=== PATIENT | female | born 1995 | race African-American/Black ===

== ENCOUNTER 2017-01-24 18:37 | Emergency (ER) | payer OTHER ==
--- NOTE | 2017-01-24 20:08 | ED Physician Documentation ---
PD HPI Fall - Stated complaint Stated Complaint: GLF 5-8 FT/HEAD INJURY - Chief complaint Chief Complaint: Trauma Hd/Nk - History obtained from History obtained from: Patient - History of Present Illness Mechanism of injury: Lost balance (she was getting down from aircraft and reached for handhold and missed, losing balance, and fell about 8 feet to left side, struck head and arm (had helmet on), with some briefly dazed but no vomiting, visual change, confusion. Had mild nausea for few minutes. Sent to ED for evaluation after the fall. She says she was ambulatory after the injury.) Fall distance: 5 to 10ft Where injury occurred: Work Timing - onset: Today (30 minutes [employer]) Injury(ies) location: Head, Neck, Left Uppper Extremity (forearm) Quality of pain: Aching, Dull Associated symptoms: Neck pain, Nausea / vomiting. No: LOC, AMS, Weakness Worsens with: Movement (of neck, with some pain left lateral) Contributing factors: No: Anticoagulated, Intoxicated Similar symptoms before: Has not had sx before Recently seen: Not recently seen Review of Systems Constitutional: denies: Fever, Chills Eyes: denies: Loss of vision, Decreased vision, Photophobia Cardiac: denies: Chest pain / pressure, Palpitations Respiratory: denies: Dyspnea GI: reports: Nausea (for just few minutes, improved now). denies: Abdominal Pain, Vomiting, Diarrhea Skin: denies: Abrasion (s), Laceration (s) Neurologic: reports: Headache, Head injury. denies: Focal weakness, Numbness, Seizure PD PAST MEDICAL HISTORY - Past Medical History Past Medical History: No - Past Surgical History Past Surgical History: Yes - Present Medications Home Medications: Ambulatory Orders Medication Instructions Recorded Confirmed Fluconazole [Diflucan] 1 tab PO DAILY 01/24/17 01/24/17 Methocarbamol [Robaxin] 500 mg PO Q6H PRN #20 tablet 01/24/17 Naproxen 375 mg PO BID #20 tablet 01/24/17 - Allergies Allergies/Adverse Reactions: Allergies Allergy/AdvReac Type Severity Reaction Status Date / Time No Known Drug Allergies Allergy Verified 01/24/17 18:40 - Social History Does the pt smoke?: No Smoking Status: Never smoker Does the pt drink ETOH?: Yes Does the pt have substance abuse?: No - Immunizations Immunizations are current?: Yes - POLST Patient has POLST: No PD ED PE NORMAL - Vitals Vital signs reviewed: Yes - General General: Alert and oriented X 3, No acute distress, Well developed/nourished - HEENT HEENT: Atraumatic (no tenderness of scalp focally), Pharynx benign - Neck Neck: Supple, no meningeal sign, No adenopathy, Other (some tenderness of left paracervical area. No obvious deformity. ) - Cardiac Cardiac: RRR, No murmur - Respiratory Respiratory: Clear bilaterally - Abdomen Abdomen: Soft, Non tender - Derm Derm: Normal color, Warm and dry - Extremities Extremities: Normal ROM s pain, Other (mild tenderness left forearm with good ROM and no deformity. ) - Neuro Neuro: Alert and oriented X 3, heddler tier 2-12 intact, No motor deficit, No sensory deficit, Normal speech Results - Vitals Vitals: Vital Signs - 24 hr 01/24/17 01/24/17 18:37 21:23 Heart Rate 91 85 Respiratory 16 18 Rate Blood Pressure 132/89 H 125/85 H O2 Saturation 100 100 Oxygen O2 Source Room air - Rads (name of study) head CT Radiology: Prelim report reviewed, EMP read contemporaneously (no acute findings ) cervical xray Radiology: Prelim report reviewed (no bony abnormality) PD MEDICAL DECISION MAKING - ED course Complexity details: reviewed results (head CT and neck xray are okay. Had low suspicion for neck problem and so did plain film rather than CT to reduce radiation of thyroid and upper chest. ), considered differential, d/w patient Departure - Departure Disposition: 01 Home, Self Care Clinical Impression: Accidental fall Qualifiers: Encounter type: initial encounter Qualified Code(s): W19.XXXA - Unspecified fall, initial encounter Cervical strain, acute Qualifiers: Encounter type: initial encounter Qualified Code(s): S16.1XXA - Strain of muscle, fascia and tendon at neck level, initial encounter Head contusion Qualifiers: Encounter type: initial encounter Contusion of head detail: scalp Qualified Code(s): S00.03XA - Contusion of scalp, initial encounter Condition: Stable Record reviewed to determine appropriate education?: Yes Instructions: ED Head Injury Closed, ED Sprain Strain Neck Follow-Up: PERCY CALDWELL [Primary Care Provider] - Prescriptions: Methocarbamol [Robaxin] 500 mg PO Q6H PRN #20 tablet PRN Reason: Spasms Naproxen 375 mg PO BID #20 tablet Comments: Tylenol or ibuprofen as needed for pains. Add Robaxin if needed for muscle stiffness. Heat and gentle range of motion of the neck periodically. Avoid heavy lifting or push pull for 2-3 days. Light duty for 2-3 days. Forms: Activity restrictions Discharge Date/Time: 01/24/17 21:26
[2017-01-24] MEDS ORDERED: IBUPROFEN 600 MG TABLET PO STA (20:19)
[2017-01-24] MEDS ORDERED: ACETAMINOPHEN 325 MG TABLET PO STA (20:20)
[2017-01-24] MEDS ORDERED: IBUPROFEN 600 MG TABLET PO ONE (20:31)
[2017-01-24] MEDS ORDERED: ACETAMINOPHEN 325 MG TABLET PO ONE (20:31)
--- NOTE | 2017-01-24 21:10 | XRAY Preliminary Report ---
Exam: XR CERVICAL SPINE 2 VIEW IMPRESSION: Normal cervical spine radiography. [facility] SITE ID: [id number]
--- NOTE | 2017-01-24 21:13 | XRAY Report ---
EXAM: CERVICAL SPINE RADIOGRAPHY EXAM DATE: 01/24/2017 08:48 PM. CLINICAL HISTORY: Fall with some left neck pain. COMPARISONS: None. TECHNIQUE: 3 views. FINDINGS: Alignment: Normal. No spondylolisthesis or scoliosis. Bones: The cervical vertebral bodies and posterior elements are well visualized from the skull base t hrough C7-T1. No fractures or bone lesions. Disks: Normal. Disk heights are maintained. Facets: No degenerative disease. Soft Tissues: Normal. No prevertebral soft tissue swelling. The visualized lung apices are clear. IMPRESSION: Normal cervical spine radiography. [facility] Referring Provider Line: [phone] SITE ID: [id number]
--- NOTE | 2017-01-24 21:13 | CT Preliminary Report ---
Exam: CT HEAD W/O IMPRESSION: Normal head CT. [facility] SITE ID: [id number]
--- NOTE | 2017-01-24 21:16 | CT Report ---
EXAM: CT HEAD EXAM DATE: 01/24/2017 08:40 PM. CLINICAL HISTORY: Fell 8 ft and struck head; mild concussive sxs. COMPARISON: None. TECHNIQUE: Multiaxial CT images were obtained from the foramen magnum to the vertex. Reformats: Coron al. IV contrast: None. In accordance with CT protocol optimization, one or more of the following dose reduction techniques w ere utilized for this exam: automated exposure control, adjustment of mA and/or KV based on patient s ize, or use of iterative reconstructive technique. FINDINGS: Parenchyma: No intraparenchymal hemorrhage. No evidence of mass, midline shift, or CT findings of inf arction. Werner-white differentiation is distinct. Extraaxial Spaces: Normal for age. No subdural or epidural collections identified. Ventricles: Normal in size and position. Sinuses and Orbits: Imaged paranasal sinuses, orbits, and mastoids show no significant abnormality. Bones: No evidence of fracture or calvarial defect. Other: None. IMPRESSION: Normal head CT. [facility] Referring Provider Line: [phone] SITE ID: [id number]
[2017-01-24 21:27] VITALS: BP 125/85
== END 2017-01-24 21:26 | disposition home or self-care (01) ==
LOC: ED 18:37
DX: S16.1XXA Strain of muscle, fascia and tendon at neck level, initial encounter (principal); S00.03XA Contusion of scalp, initial encounter; V97.1XXA Person injured while boarding or alighting from aircraft, initial encounter; Y99.0 Civilian activity done for income or pay
CPT/HCPCS: 70450; 72040; 99283; A9270

== ENCOUNTER 2021-08-02 08:00 | Outpatient (CLI) | payer OTHER ==
--- NOTE | 2021-08-02 17:27 | XRAY Report ---
PROCEDURE: Wrist 4 View RT INDICATIONS: R WRIST PX TECHNIQUE: 4 views of the wrist were acquired. COMPARISON: None FINDINGS: Bones: No fractures or dislocations. No suspicious bony lesions. Scaphoid view: Scaphoid is intact. Soft tissues: No suspicious soft tissue calcifications. IMPRESSION: No fracture. No osseous lesion. If symptoms and/or clinical concern for pathology persists, further a ssessment with repeat plain film radiographs (7-10 days) or advanced imaging (CT, MR, bone scan) shou ld be considered. Reviewed by: Dulce Walker MD, PhD on 08/02/2021 5:25 PM PDT Approved by: Dulce Walker MD, PhD on 08/02/2021 5:25 PM PDT Station ID: [id number]
== END 2021-08-02 23:59 | disposition home or self-care (01) ==
LOC: DI.N 08:00
PROVIDERS: ATTEND Nurse Practitioner
DX: M25.531 Pain in right wrist (principal)

== ENCOUNTER 2021-08-25 13:20 | Outpatient (CLI) | payer OTHER ==
--- NOTE | 2021-08-26 14:35 | Ultrasound Report ---
LIMITED ULTRASOUND OF RIGHT BREAST AND AXILLA: 08/25/2021 CLINICAL: Palpable right breast lump. No prior exams were available for comparison. Color flow and real-time ultrasound of the right breast 11 o'clock, and axilla regions were performed . Werner scale images of the real-time examination were reviewed. There is a 2 cm x 1.1 cm x 1.6 cm irregular mass with an angular margin in the right breast at 11 o'c lock posterior depth 10 cm from the skin. This irregular mass is hypoechoic with no posterior acoust ic shadowing or enhancement. This correlates as palpated. Color flow imaging demonstrates that ther e is increased vascularity. There also is a 2.3 cm x 0.9 cm x 1.4 cm oval lymph node with uniform cortical thickening in the righ t axillary tail. IMPRESSION: SUSPICIOUS OF MALIGNANCY The 2 cm x 1.1 cm x 1.6 cm irregular mass in the right breast at 11 o'clock posterior depth is at a m oderate suspicion for malignancy. An ultrasound guided biopsy is recommended. These findings and recommendation were discussed with the patient by Dr Walker. This exam was interpreted at Station ID: [id number]. Electronically Signed By: Michael Kan acr/:08/25/2021 14:46:35 Ultrasound BI-RADS: 4b Moderate suspicion of malignancy BI-RADS CATEGORY: (4b) - Mod Susp Biopsy follow-up [id number] Immediate follow-up LATERALITY: (B)
== END 2021-08-25 13:21 | disposition home or self-care (01) ==
LOC: DI 13:20
PROVIDERS: ATTEND Nurse Practitioner
DX: N63.11 Unspecified lump in the right breast, upper outer quadrant (principal); Z80.3 Family history of malignant neoplasm of breast

== ENCOUNTER 2021-08-31 09:50 | Outpatient (CLI) | payer OTHER ==
[~2021-08-31 09:50] MED LIST: LIDOCAINE 1%-EPI 1:100000 20 ML MDV ONE; lidocaine 1% 20 ML MDV ONE
[2021-08-31] MEDS ORDERED: lidocaine 1% 20 ML MDV SUBQ ONE (11:13)
[2021-08-31] MEDS ORDERED: LIDOCAINE 1%-EPI 1:100000 20 ML MDV SUBQ ONE (12:00)
--- NOTE | 2021-09-02 08:48 | Mammography Report ---
UNILATERAL RIGHT DIGITAL DIAGNOSTIC MAMMOGRAM 3D/2D WITH EXAGGERATED CC LATEROMEDIAL: 08/31/2021 CLINICAL: Post right breast ultrasound biopsy clip placement imaging. Comparison is made to exams dated: 08/31/2021 ultrasound biopsy and 08/25/2021 ultrasound - [facility]. The tissue of right breast is extremely dense, which lowers the sensitivity of m ammography. There is a marker clip in the appropriate position in the right breast at 11 o'clock posterior depth 10 cm from the skin. IMPRESSION: POST PROCEDURE MAMMOGRAM FOR MARKER PLACEMENT There was a successful marker clip placement in the right breast posterior depth. This exam was interpreted at Station ID: [id number]. NOTE: For mammograms, a report in lay terms will be sent to the patient. Approximately 15% of breast malignancies will not be visualized mammographically. In the management of a palpable breast mass, a negative mammogram must not discourage biopsy of a clinically suspicious lesion. Electronically Signed By: Beto Stewart M.D., jr/zuleyka:08/31/2021 16:00:26 ACR BI-RADS Category Post-procedure mammogram for marker placement PARENCHYMAL PATTERN: (VD) - The breast(s) demonstrate(s) extremely dense parenchyma, limiting the sen sitivity of mammography. BI-RADS CATEGORY: () - Unspecified - other recall n/a LATERALITY: (B)
--- NOTE | 2021-09-02 08:48 | Ultrasound Report ---
ULTRASOUND GUIDED BIOPSY RIGHT BREAST USING VACUUM DEVICE WITH MARKING DEVICE INSERTED AND POST DIGIT AL MAMMOGRAPHIC IMAGIN08/31/2021 CLINICAL: Right breast mass. PATIENT CONSENT: Risks (minor bleeding, infection, vasovagal reaction and repeat procedure), benefits and alternatives were explained to the patient and written informed consent was obtained. Correlation is made to exam dated: 08/25/2021 ultrasound - [facility]. An ultrasound guided biopsy using real-time ultrasound was performed for the 2 cm x 1.1 cm x 1.6 cm m ass located in the right breast at 11 o'clock posterior depth 10 cm from the skin. This was describe d on the previous ultrasound report. The skin was prepped in the usual manner. Local anesthetic was administered to the access site. A skin veronica was made in the breast. The abnormality was approache d from the lateral aspect. A 12 gauge biopsy needle was placed adjacent to the abnormality under ult rasound guidance. Once the needle was documented to be in the correct location, three specimens were obtained using the [employer] system. A clip was inserted into the biopsy cavity. A skin closure strip and a sterile dressing were applied to the access site. Post procedure digital mammographic i maging demonstrates the location device at the targeted area and partial removal of the abnormality. The specimens were sent to the laboratory for pathological analysis. IMPRESSION: ULTRASOUND GUIDED BIOPSY BENIGN Ultrasound guided biopsy of the 2 cm x 1.1 cm x 1.6 cm mass in the right breast at 11 o'clock posteri or depth 10 cm from the skin was successful with no apparent post procedure complications. Pathology indicates benign fibroadenoma (FA). Pathology results are concordant with imaging findings. Recommend clinical follow up for persistent or worsening symptoms, or development of any clinically s uspicious findings. Recommend initiating routine screening mammograms at age 40. This exam was interpreted at Station ID: [id number]. Beto Ross M.D., jr,aty/:09/02/2021 08:35:29 BI-RADS CATEGORY: () - Unspecified - other recall n/a LATERALITY: (B)
== END 2021-08-31 09:51 | disposition home or self-care (01) ==
LOC: DI 09:50
PROVIDERS: ATTEND Nurse Practitioner
DX: D24.1 Benign neoplasm of right breast (principal)
CPT/HCPCS: 19083

== ENCOUNTER 2021-09-10 08:00 | Outpatient (CLI) | payer OTHER ==
--- NOTE | 2021-09-10 13:59 | XRAY Report ---
PROCEDURE: Wrist 3 View RT INDICATIONS: WRIST PAIN TECHNIQUE: 3 views of the wrist were acquired. COMPARISON: None FINDINGS: Bones: No fractures or dislocations. No suspicious bony lesions. Soft tissues: No suspicious soft tissue calcifications. IMPRESSION: Normal right wrist Reviewed by: Michael Kan on 09/10/2021 1:58 PM PDT Approved by: Michael Kan on 09/10/2021 1:58 PM PDT Station ID: [id number]
== END 2021-09-10 23:59 | disposition home or self-care (01) ==
LOC: DI.WOS 08:00
PROVIDERS: ATTEND Physician Assistant
DX: M25.531 Pain in right wrist (principal)

== ENCOUNTER 2022-01-31 17:50 | Emergency (ER) | payer OTHER ==
--- NOTE | 2022-01-31 18:11 | ED Physician Documentation ---
PD HPI CHEST PAIN - Stated complaint Stated Complaint: CHEST PX - Chief complaint Chief Complaint: Cardiac - History obtained from History obtained from: Patient, Family - History of Present Illness Timing - onset: How many weeks ago Pain level max: 2 Pain level now: 2 Quality: Sharp Location: Left chest Radiation: No: Jaw, Neck, Back, Abdominal, Left upper extremity, Right upper extremity Associated symptoms: No: Shortness of air, Nausea, Vomiting, Feeling faint / dizzy, General Weakness, Palpitations Recently seen: Not recently seen - Additional information Additional information: Patient is a 26-year-old female who presents to the emergency department complaining of 2 weeks of left-sided sharp chest pain. Nothing makes it better or worse. No change with breathing. She states it is constant. She states that today she had tingling in her left arm. She is currently feeling better. No nausea or vomiting. No dyspnea. No recent travel. No recent immobilization. No recent surgery. No cardiac history. No history of blood clots. Does not smoke. Does drink alcohol, states a glass of wine daily. Review of Systems Constitutional: denies: Fever, Chills Respiratory: denies: Cough GI: denies: Abdominal Pain, Vomiting, Constipation : denies: Now EGA Skin: denies: Rash Musculoskeletal: denies: Neck pain, Back pain PD PAST MEDICAL HISTORY - Past Medical History Past Medical History: No - Past Surgical History Past Surgical History: Yes - Present Medications Home Medications: Ambulatory Orders Medication Instructions Recorded Confirmed Fluconazole [Diflucan] 1 tab PO DAILY 01/24/17 01/24/17 Naproxen 375 mg PO BID #20 tablet 01/24/17 methocarbamoL [Robaxin] 500 mg PO Q6H PRN #20 tablet 01/24/17 - Allergies Allergies/Adverse Reactions: Allergies Allergy/AdvReac Type Severity Reaction Status Date / Time No Known Drug Allergies Allergy Verified 01/31/22 17:55 - Social History Does the pt smoke?: No Smoking Status: Never smoker Does the pt drink ETOH?: Yes Does the pt have substance abuse?: No - Immunizations Immunizations are current?: Yes - POLST Patient has POLST: No PD ED PE NORMAL - Vitals Vital signs reviewed: Yes - General General: Alert and oriented X 3, No acute distress, Well developed/nourished - HEENT HEENT: PERRL, Moist mucous membranes - Neck Neck: Supple, no meningeal sign - Cardiac Cardiac: RRR, No murmur, Strong equal pulses - Respiratory Respiratory: No respiratory distress, Clear bilaterally - Abdomen Abdomen: Soft, Non tender, Non distended - Derm Derm: Warm and dry - Extremities Extremities: No edema, No calf tenderness / cord - Neuro Neuro: Alert and oriented X 3 - Psych Psych: Normal mood, Normal affect Results - Vitals Vitals: Vital Signs - 24 hr 01/31/22 01/31/22 17:52 18:16 Temperature 36.4 C L Heart Rate 97 58 L Respiratory 20 16 Rate Blood Pressure 132/82 H 191/74 H O2 Saturation 100 100 Oxygen O2 Source Room air - EKG (time done) 1802 Rate: Rate (enter#) (92) Rhythm: NSR [place]: Normal Intervals: Normal AL QRS: Normal Ischemia: Normal ST segments - Labs Labs: Laboratory Tests 01/31/22 01/31/22 01/31/22 18:14 18:14 18:14 WBC 10.6 RBC 4.97 Hgb 14.0 Hct 44.2 MCV 88.9 MCH 28.2 MCHC 31.7 L RDW 13.3 Plt Count 360 MPV 9.4 Neut # (Auto) 5.6 Lymph # (Auto) 3.7 H [place] # (Auto) 1.0 Eos # (Auto) 0.2 Baso # (Auto) 0.1 Absolute Nucleated RBC 0.00 Nucleated RBC % 0.0 D-Dimer 218.8 Sodium 134 L Potassium 3.8 Chloride 102 Carbon Dioxide 23 Anion Gap 9.0 BUN 11 Creatinine 0.7 Estimated GFR (MDRD) 121 Glucose 93 Calcium 9.4 Total Bilirubin 0.4 AST 20 ALT 19 Alkaline Phosphatase 33 L Troponin I High Sens Total Protein 7.5 Albumin 4.1 Globulin 3.4 Albumin/Globulin Ratio 1.2 Lipase 36 01/31/22 18:14 WBC RBC Hgb Hct MCV MCH MCHC RDW Plt Count MPV Neut # (Auto) Lymph # (Auto) [place] # (Auto) Eos # (Auto) Baso # (Auto) Absolute Nucleated RBC Nucleated RBC % D-Dimer Sodium Potassium Chloride Carbon Dioxide Anion Gap BUN Creatinine Estimated GFR (MDRD) Glucose Calcium Total Bilirubin AST ALT Alkaline Phosphatase Troponin I High Sens < 2.3 L Total Protein Albumin Globulin Albumin/Globulin Ratio Lipase - Rads (name of study) Chest x-ray Radiology: Final report received, See rad report PD Medical Decision Making - ED course Complexity details: reviewed results, re-evaluated patient, considered differential (No ST elevation [place], no aortic dissection, no PE, no tension pneumothorax, no aortic aneurysm), d/w patient, d/w family ED course: No acute findings on EKG, chest x-ray, laboratory testing. D-dimer is negative. Clinically not consistent with a PE. Asymptomatic here. We will have her follow-up with her doctor for further care. Unclear etiology of her symptoms. Patient counseled regarding signs and symptoms for which I believe and urgent re-evaluation would be necessary. Patient with good understanding of and agreement to plan and is comfortable going home at this time This document was made in part using voice recognition software. While efforts are made to proofread this document, sound alike and grammatical errors may occur. Departure - Departure Disposition: 01 Home, Self Care Clinical Impression: Chest pain Qualifiers: Chest pain type: unspecified Qualified Code(s): R07.9 - Chest pain, unspecified Condition: Good Instructions: ED Chest Pain NonCardiac Follow-Up: Adore Babb ARNP [Primary Care Provider] - Within 1 week Comments: The cause of your symptoms is unclear today. There is no evidence of heart disease, blood clots in your lungs, heart attacks. Please follow-up with your doctor for further care. Return if you worsen. Discharge Date/Time: 01/31/22 19:09
[2022-01-31 18:17] VITALS: BP 191/74
[2022-01-31 18:22] LABS: BASOPHILS # (AUTO) 0.1 10^3/uL (0.0-0.1); BASOPHILS % (AUTO) 0.5 %; EOSINOPHILS # (AUTO) 0.2 10^3/uL (0.0-0.7); HCT - HEMATOCRIT 44.2 % (37.0-47.0); MEAN CORPUSCULAR HEMOGLOBIN 28.2 pg (27.0-31.0); MEAN CORPUSCULAR HGB CONC 31.7 g/dL (32.0-36.0); MEAN CORPUSCULAR VOLUME 88.9 fL (81.0-99.0); MEAN PLATELET VOLUME 9.4 fL (7.9-10.8); RED BLOOD COUNT 4.97 10^6/uL (4.20-5.40); RED CELL DISTRIBUTION WIDTH 13.3 % (12.0-15.0)
[2022-01-31 18:25] LABS: LYMPHOCYTES # (AUTO) 3.7 10^3/uL (1.5-3.5); LYMPHOCYTES % (AUTO) 35.2 %; MONOCYTES % (AUTO) 9.3 %; NEUTROPHILS # (AUTO) 5.6 10^3/uL (1.5-6.6); NEUTROPHILS % (AUTO) 52.8 %; PLT - PLATELET COUNT 360 10^3/uL (130-450); WHITE BLOOD COUNT 10.6 x10^3/uL (4.8-10.8)
[2022-01-31 18:40] LABS: ALBUMIN 4.1 g/dL (3.2-5.5); ALBUMIN/GLOBULIN RATIO 1.2 (1.0-2.2); BILIRUBIN,TOTAL 0.4 mg/dL (0.2-1.0); CALCIUM 9.4 mg/dL (8.5-10.3); CREATININE 0.7 mg/dL (0.4-1.0); POTASSIUM 3.8 mmol/L (3.5-5.0); TOTAL PROTEIN 7.5 g/dL (6.7-8.2)
--- NOTE | 2022-01-31 18:47 | XRAY Report ---
PROCEDURE: Chest 1 View X-Ray INDICATIONS: Chest Pain TECHNIQUE: One view of the chest was acquired. COMPARISON: None. FINDINGS: Surgical changes and devices: None. Lungs and pleura: No pleural effusions or pneumothorax. Lungs are clear. Mediastinum: Mediastinal contours appear normal. Heart size is normal. Bones and chest wall: No suspicious bony lesions. Scoliosis. Overlying soft tissues appear unremark able. IMPRESSION: No acute cardiopulmonary abnormality. Reviewed by: Clovis Merlos MD on 01/31/2022 6:46 PM [facility] Approved by: Clovis Merlos MD on 01/31/2022 6:46 PM PST Station ID: [id number]
== END 2022-01-31 19:09 | disposition home or self-care (01) ==
LOC: ED 17:50
DX: R07.9 Chest pain, unspecified (principal)
CPT/HCPCS: 36415; 80053; 83690; 84484; 85025; 85379; 93005; 99282; 99284

== ENCOUNTER 2022-10-03 08:38 | Outpatient (CLI) | payer OTHER ==
--- NOTE | 2022-10-03 10:51 | XRAY Report ---
PROCEDURE: Hand 3 View RT INDICATIONS: THUMB PAIN,RIGHT TECHNIQUE: 3 views of the hand(s) acquired. COMPARISON: None. FINDINGS: Bones: No fractures or dislocations. No suspicious bony lesions. Soft tissues: No suspicious soft tissue calcifications or masses. IMPRESSION: No acute bony abnormality. Reviewed by: Saloni Van MD on 10/03/2022 10:50 AM PDT Approved by: Saloni Van MD on 10/03/2022 10:50 AM PDT Station ID: [id number]
== END 2022-10-03 08:39 | disposition home or self-care (01) ==
LOC: DI 08:38
PROVIDERS: ATTEND Nurse Practitioner
DX: M79.644 Pain in right finger(s) (principal)

== ENCOUNTER 2022-11-30 07:04 | Emergency (ER) | payer OTHER ==
[2022-11-30 07:32] VITALS: BP 123/80; O2SAT 99
[2022-11-30 07:50] LABS: BASOPHILS # (AUTO) 0.1 10^3/uL (0.0-0.1); BASOPHILS % (AUTO) 0.5 %; EOSINOPHILS # (AUTO) 0.1 10^3/uL (0.0-0.7); EOSINOPHILS % (AUTO) 1.2 %; HCT - HEMATOCRIT 45.6 % (37.0-47.0); LYMPHOCYTES # (AUTO) 3.5 10^3/uL (1.5-3.5); LYMPHOCYTES % (AUTO) 34.8 %; MEAN CORPUSCULAR HEMOGLOBIN 28.9 pg (27.0-31.0); MEAN CORPUSCULAR HGB CONC 32.9 g/dL (32.0-36.0); MEAN CORPUSCULAR VOLUME 87.9 fL (81.0-99.0); MEAN PLATELET VOLUME 9.6 fL (7.9-10.8); MONOCYTES # (AUTO) 0.8 10^3/uL (0.0-1.0); MONOCYTES % (AUTO) 7.5 %; NEUTROPHILS # (AUTO) 5.6 10^3/uL (1.5-6.6); NEUTROPHILS % (AUTO) 55.7 %; PLT - PLATELET COUNT 363 10^3/uL (130-450); RED BLOOD COUNT 5.19 10^6/uL (4.20-5.40); RED CELL DISTRIBUTION WIDTH 13.2 % (12.0-15.0); WHITE BLOOD COUNT 10.1 x10^3/uL (4.8-10.8)
[2022-11-30 08:01] LABS: ALBUMIN 4.6 g/dL (3.2-5.5); ALBUMIN/GLOBULIN RATIO 1.5 (1.0-2.2); BILIRUBIN,TOTAL 0.6 mg/dL (0.2-1.0); CALCIUM 9.8 mg/dL (8.5-10.3); CREATININE 0.7 mg/dL (0.6-1.3); POTASSIUM 3.7 mmol/L (3.5-4.5); TOTAL PROTEIN 7.6 g/dL (6.4-8.9)
--- NOTE | 2022-11-30 08:05 | ED Physician Documentation ---
PD HPI ABD PAIN - Stated complaint Stated Complaint: ABD PX/NAUSEA - Chief complaint Chief Complaint: Abd Pain - History obtained from History obtained from: Patient - Additional information Additional information: Patient is a 27-year-old female with no significant prior medical history presenting for evaluation of right lower quadrant pain that she states has been present for the past 3 weeks. Patient states she notices the pain when she is walking or being more active. No associated nausea, vomiting or diarrhea. No dysuria or hematuria. Patient has a history of irregular periods. Denies v aginal discharge. States last night she noticed some discomfort on the left lower quadrant that was similar but that has since resolved. She was taking Excedrin earlier on when the pain initially started but that did not seem to help greatly.Denies prior abdominal surgeries. No fever, chest pain, shortness of air, flank pain. Review of Systems Constitutional: denies: Fever Cardiac: denies: Chest pain / pressure Respiratory: denies: Dyspnea GI: reports: Abdominal Pain. denies: Vomiting : denies: Dysuria, Vaginal bleeding PD PAST MEDICAL HISTORY - Past Surgical History Past Surgical History: Yes - Present Medications Home Medications: Ambulatory Orders Medication Instructions Recorded Confirmed Fluconazole [Diflucan] 1 tab PO DAILY 01/24/17 01/24/17 Naproxen 375 mg PO BID #20 tablet 01/24/17 methocarbamoL [Robaxin] 500 mg PO Q6H PRN #20 tablet 01/24/17 - Allergies Allergies/Adverse Reactions: Allergies Allergy/AdvReac Type Severity Reaction Status Date / Time No Known Drug Allergies Allergy Verified 11/30/22 07:24 - Social History Does the pt smoke?: No Smoking Status: Never smoker Does the pt drink ETOH?: Yes Does the pt have substance abuse?: No - Immunizations Immunizations are current?: Yes - POLST Patient has POLST: No PD ED PE NORMAL - General General: Alert and oriented X 3, No acute distress, Well developed/nourished - HEENT HEENT: Atraumatic, Moist mucous membranes, Pharynx benign - Neck Neck: Supple, no meningeal sign - Cardiac Cardiac: RRR, No murmur - Respiratory Respiratory: No respiratory distress, Clear bilaterally - Abdomen Abdomen: Normal bowel sounds, Soft, Non tender, Non distended, Other (No tenderness on deep palpation of all 4 quadrants, no mass, no rebound or guarding) - Derm Derm: Warm and dry - Neuro Neuro: Normal speech Results - Vitals Vitals: Vital Signs - 24 hr 11/30/22 07:22 Temperature 36.7 C Heart Rate 86 Respiratory 16 Rate Blood Pressure 123/80 O2 Saturation 99 Oxygen O2 Source Room air - Labs Labs: Laboratory Tests 11/30/22 11/30/22 11/30/22 07:37 07:37 08:35 WBC 10.1 RBC 5.19 Hgb 15.0 Hct 45.6 MCV 87.9 MCH 28.9 MCHC 32.9 RDW 13.2 Plt Count 363 MPV 9.6 Neut # (Auto) 5.6 Lymph # (Auto) 3.5 Hale # (Auto) 0.8 Eos # (Auto) 0.1 Baso # (Auto) 0.1 Absolute Nucleated RBC 0.00 Nucleated RBC % 0.0 Sodium 137 Potassium 3.7 Chloride 103 Carbon Dioxide 27 Anion Gap 7.0 BUN 13 Creatinine 0.7 Estimated GFR (MDRD) 120 Glucose 99 Calcium 9.8 Total Bilirubin 0.6 AST 14 ALT 14 Alkaline Phosphatase 33 L Total Protein 7.6 Albumin 4.6 Globulin 3.0 Albumin/Globulin Ratio 1.5 Lipase 27 Urine Color YELLOW Urine Clarity CLEAR Urine pH 6.0 Ur Specific [place] 1.010 Urine Protein NEGATIVE Urine Glucose (UA) NEGATIVE Urine Ketones NEGATIVE Urine Occult Blood NEGATIVE Urine Nitrite NEGATIVE Urine Bilirubin NEGATIVE Urine Urobilinogen 0.2 (NORMAL) Ur Leukocyte Esterase SMALL H Urine RBC 0-5 Urine WBC 6-10 H Ur Squamous Epith Cells MANY Squamous H Urine Bacteria Few Ur Microscopic Review INDICATED Urine Culture Comments NOT INDICATED Urine HCG, Qual NEGATIVE PD Medical Decision Making - ED course Complexity details: reviewed results, re-evaluated patient, d/w patient ED course: Patient presenting for evaluation of right lower quadrant abdominal pain that has been present for the past 3 weeks that worsens with certain movements and activity. Her vital signs are stable. CBC, chemistries were obtained and reviewed and without significant findings. She has no tenderness elicited on exam with initial and on repeat exam. Her urine is negative for and she has no symptoms to suggest a UTI. As she appears to be symptom-free here I do not think emergent imaging is indicated. Patient counseled on need for close follow-up with primary care as well as strict return precautions should she have any worsening symptoms. Departure - Departure Disposition: 01 Home, Self Care Clinical Impression: Right lower quadrant abdominal pain Condition: Stable Instructions: ED Abdominal Pain Female Non-Specific Abdominal Pain Comments: You were evaluated for pain in your lower abdomen that has been present for the past 3 weeks. Your vital signs are stable and your labs are reassuring with normal electrolytes and a normal white blood cell count. At this time we are not able to elicit any tenderness on your exam and thus I do not feel emergent imaging would be particularly helpful. However I would recommend close follow- up with your primary care provider if your symptoms are continuing. Your test is negative. Please return to the emergency department with worsening symptoms such as increased pain, vomiting or any new concerns. Forms: PCP List Discharge Date/Time: 11/30/22 09:41
[2022-11-30 08:44] LABS: BILIRUBIN,URINE NEGATIVE (NEGATIVE); GLUCOSE, URINE (UA) NEGATIVE (NEGATIVE); KETONES,URINE (UA) NEGATIVE (NEGATIVE); LEUKOCYTE ESTERASE, URINE SMALL (NEGATIVE); NITRITE,URINE NEGATIVE (NEGATIVE); OCCULT BLOOD,URINE NEGATIVE (NEGATIVE); PROTEIN,URINE NEGATIVE (NEGATIVE); UROBILINOGEN,URINE 0.2 (NORMAL) E.U./dL (NORMAL)
[2022-11-30 08:47] LABS: CLARITY,URINE CLEAR (CLEAR); HCG UR QUAL NEGATIVE
[2022-11-30 09:16] LABS: BACTERIA,URINE Few /HPF (None Seen); RBC,URINE 0-5 /HPF (0-5); SQUAMOUS EPITHELIAL CELL,UR MANY Squamous (<= Few)
== END 2022-11-30 09:41 | disposition home or self-care (01) ==
LOC: ED 07:04
DX: R10.31 Right lower quadrant pain (principal)
CPT/HCPCS: 36415; 80053; 81001; 81003; 81025; 83690; 85025; 87086; 99283

== ENCOUNTER 2022-12-09 13:24 | Outpatient (CLI) | payer OTHER ==
[2022-12-09 17:57] LABS: CHOL/HDL RATIO 3.8 (<4.4); CHOLESTEROL 226 mg/dL; HDL CHOLESTEROL 59 mg/dL; LDL CHOLESTEROL,CALCULATED 154 mg/dL; LDL/HDL RATIO 2.6 (<4.4); TRIGLYCERIDES 63 mg/dL (48-352); VLDL CHOLESTEROL 13 mg/dL
[2022-12-09 18:46] LABS: THYROID STIMULATING HORMONE 1.84 uIU/mL (0.34-5.60)
== END 2022-12-09 13:25 | disposition home or self-care (01) ==
LOC: LAB.N 13:24
PROVIDERS: ATTEND Nurse Practitioner
DX: R53.83 Other fatigue (principal); Z13.220 Encounter for screening for lipoid disorders; F41.9 Anxiety disorder, unspecified; F32.A Depression, unspecified
CPT/HCPCS: 36415; 80061; 83721; 84443

== ENCOUNTER 2023-04-09 12:07 | Emergency (ER) | payer OTHER ==
[2023-04-09 12:18] VITALS: O2SAT 100
--- NOTE | 2023-04-09 13:00 | ED Physician Documentation ---
PD HPI BACK PAIN - Stated complaint Stated Complaint: LT SIDE PX - Chief complaint Chief Complaint: Back Pain - History obtained from History obtained from: Patient - History of Present Illness Timing - onset: How many days ago (few) Timing - duration: Days Timing - details: Gradual onset, Still present Location: Mid, Left Quality: Pain, Aching Associated symptoms: No: Fever, Weakness, Numbness, Incontinent of urine Improves with: Rest Worsened by: Movement, Other (deep breathing hurts flank area.). No: Palpation Review of Systems Constitutional: reports: Myalgias. denies: Fever, Chills Nose: denies: Rhinorrhea / runny nose, Congestion Throat: denies: Sore throat Respiratory: reports: Cough (had cough with COVID couple weeks ago and still has mild residual.). denies: Dyspnea, Wheezing GI: denies: Nausea, Vomiting, Diarrhea Skin: denies: Rash, Lesions PD PAST MEDICAL HISTORY - Past Medical History Past Medical History: No - Past Surgical History Past Surgical History: Yes - Present Medications Home Medications: Ambulatory Orders Medication Instructions Recorded Confirmed Fluconazole [Diflucan] 1 tab PO DAILY 01/24/17 01/24/17 Naproxen 375 mg PO BID #20 tablet 01/24/17 methocarbamoL [Robaxin] 500 mg PO Q6H PRN #20 tablet 01/24/17 HYDROcod/ACETAM 5/325 [[place] 5/325] 1 ea PO Q6H PRN #14 tablet 04/09/23 Meloxicam [Mobic] 7.5 mg PO BID 10 Days #20 tablet 04/09/23 - Allergies Allergies/Adverse Reactions: Allergies Allergy/AdvReac Type Severity Reaction Status Date / Time No Known Drug Allergies Allergy Verified 04/09/23 12:10 - Social History Does the pt smoke?: No Smoking Status: Never smoker Does the pt drink ETOH?: Yes Does the pt have substance abuse?: No - Immunizations Immunizations are current?: Yes - POLST Patient has POLST: No PD ED PE NORMAL - Vitals Vital signs reviewed: Yes - General General: Alert and oriented X 3, No acute distress, Well developed/nourished - HEENT HEENT: Pharynx benign - Neck Neck: Supple, no meningeal sign, No adenopathy - Cardiac Cardiac: RRR, No murmur - Respiratory Respiratory: No respiratory distress, Clear bilaterally - Abdomen Abdomen: Soft, Non distended, Other (soem tenderness luq area an dleft flank. No rash nor sores. no focal tenderness area. ) - Derm Derm: Normal color, Warm and dry - Extremities Extremities: No deformity, Normal ROM s pain, No edema - Neuro Neuro: Alert and oriented X 3, No motor deficit, Normal speech Results - Vitals Vitals: Oxygen O2 Source Room air - Labs Labs: Laboratory Tests 04/09/23 13:43 Urine Color YELLOW Urine Clarity CLEAR Urine pH 7.5 Ur Specific [place] 1.010 Urine Protein NEGATIVE Urine Glucose (UA) NEGATIVE Urine Ketones NEGATIVE Urine Occult Blood NEGATIVE Urine Nitrite NEGATIVE Urine Bilirubin NEGATIVE Urine Urobilinogen 0.2 (NORMAL) Ur Leukocyte Esterase NEGATIVE Ur Microscopic Review NOT INDICATED Urine Culture Comments NOT INDICATED Urine HCG, Qual NEGATIVE - Rads (name of study) abd/pelvic CT Relevant Findings:: Prelim report reviewed, EMP independent interpretation of test (lower lung is normal in area. No acute process to account for the pian. No stone, normal spleen reported.) PD Medical Decision Making - ED course Complexity details: reviewed results (imaging did not show any acute cause of the pain. ), considered differential, d/w patient Reviewed Lab Results: UA is normal. No imaging abnormalities to explain the pain. At least no pneumonia,e ffusion, kidney stone nor swelling, colitis, divertulitis, UTI. Presume muscular back pain. It is not in distribution to be nerve line. It ismore muscular territory. Has some element of pleurisy as it hurts with deep breathing. She states had COVID 2 weeks ago and is over it Departure - Departure Disposition: 01 Home, Self Care Clinical Impression: Acute flank pain, Acute thoracic myofascial strain Condition: Stable Record reviewed to determine appropriate education?: Yes Instructions: ED Flank Pain Uncertain Cause Follow-Up: Adore Babb ARNP [Primary Care Provider] - Prescriptions: Meloxicam [Mobic] 7.5 mg PO BID 10 Days #20 tablet HYDROcod/ACETAM 5/325 [[place] 5/325] 1 ea PO Q6H PRN #14 tablet PRN Reason: Pain Comments: Your urine test was without any signs of infection. Your CT scan did not show any obvious cause for the pain. No signs of kidney stones or swelling. The intestines and spleen in that area appear normal. The lower part of the lung is clear without any pneumonia or fluid. Your IUD is in the correct position. I presume the pain you are having is muscular or the surface around the lung (strain or pleurisy). There is could possibly be residual effect from the recen t COVID you had with some inflammation around the lung. Otherwise muscle strain. Comment treatment for these would be anti-inflammatories regularly for the next week or so. To that add Tylenol every 4-6 hours regularly for pain for the next several days to week. Add hydrocodone/acetaminophen if needed for worse pain. I sent a small prescription to your preferred pharmacy as I would anticipate not needing stronger pain medicine longer than the first few days. Recheck if not improving well over the next few days and resolved by 4 to 5 days. Follow-up with your primary care if not improved and return to the ER if you have worsening pain or other symptoms develop to suggest different diagnoses (fever, rash, vomiting, diarrhea etc.). I am prescribing a short course of narcotic pain medication for you. These are potentially dangerous and addictive medications that should be used carefully. These medications may constipate you. Take an [id number] stool softener such as docusate twice daily with plenty of water while taking these medications. If you go 24 hours without a bowel movement, take [id number] MiraLAX, per package instructions. Do not drink or drive while taking these medications. If you received narcotic or sedating medications while in the emergency department do not drive for 24 hours. Store this medication in a safe, secure place and out of reach of children. It is a violation of federal law to give or sell this medication to another person or to use in a manner other than prescribed. The ED will not refill narcotic prescriptions, including prescriptions lost or stolen. You can dispose of unwanted medications at the [facility]'s office or at several pharmacies such as [facility]. Discharge Date/Time: 04/09/23 15:48
[2023-04-09] MEDS: ACETAMINOPHEN 500 MG TABLET PO STA (13:42)
[2023-04-09] MEDS: IBUPROFEN 600 MG TABLET PO STA (13:42)
[2023-04-09 13:53] LABS: BILIRUBIN,URINE NEGATIVE (NEGATIVE); GLUCOSE, URINE (UA) NEGATIVE (NEGATIVE); KETONES,URINE (UA) NEGATIVE (NEGATIVE); LEUKOCYTE ESTERASE, URINE NEGATIVE (NEGATIVE); NITRITE,URINE NEGATIVE (NEGATIVE); OCCULT BLOOD,URINE NEGATIVE (NEGATIVE); PH,URINE 7.5 PH (5.0-7.5); PROTEIN,URINE NEGATIVE (NEGATIVE); UROBILINOGEN,URINE 0.2 (NORMAL) E.U./dL (NORMAL)
[2023-04-09 13:55] LABS: CLARITY,URINE CLEAR (CLEAR); HCG UR QUAL NEGATIVE
--- NOTE | 2023-04-09 14:50 | CT Report ---
PROCEDURE: Abdomen/Pelvis WO INDICATIONS: left flank pain for 4 days TECHNIQUE: A CT scan of the abdomen and pelvis was performed without the use of intravenous contrast. Images we re recorded and evaluated at appropriate window settings. Reformats: coronal and sagittal. For radiat ion dose reduction, the following was used: automated exposure control, adjustment of mA and/or kV ac cording to patient size. COMPARISON: None. FINDINGS: Image quality: Diagnostic Lower chest: Lung bases are unremarkable. Solid organs are not well evaluated the absence of intravenous contrast. Liver: Unremarkable Gallbladder and biliary system: Unremarkable, nondilated Pancreas: No ductal dilation Spleen: Nonenlarged Adrenals: No discrete nodules Kidneys: No hydronephrosis or obstructing calculus is identified.possible milk of calcium deposits in the right kidney/early nonobstructing small calculi. Vessels and lymph nodes: No abdominal aortic aneurysm. No pathologic lymph nodes by size criteria. Bowel and peritoneum: Mildly distended stomach. No pathologic ascites. No drainable abscess. Body wall: Unremarkable Pelvis: Bladder is unremarkable. There is an IUD. Bones: No acute or suspicious osseous finding. IMPRESSION: No small bowel obstruction. No obstructing renal calculus. Possible nonobstructive calculi or milk of calcium is seen in the right calyces. Other findings as above. Reviewed by: Roger Tobias MD on 04/09/2023 2:49 PM PST Approved by: Roger Tobias MD on 04/09/2023 2:49 PM PST Station ID: [id number]
[2023-04-09 15:55] VITALS: BP 133/82
== END 2023-04-09 15:48 | disposition home or self-care (01) ==
LOC: ED 12:07
DX: R10.9 Unspecified abdominal pain (principal); S29.012A Strain of muscle and tendon of back wall of thorax, initial encounter; X58.XXXA Exposure to other specified factors, initial encounter; R09.1 Pleurisy; Z97.5 Presence of (intrauterine) contraceptive device
CPT/HCPCS: 74176; 81003; 81025; 99284; A9270; 81001; 87086